=== PATIENT | male | born 1990 | race Two or more races ===

== ENCOUNTER 2021-01-10 12:11 | Emergency (ER) | payer MEDICAID, OTHER ==
[~2021-01-10] VITALS: Ht 172.7 cm; Wt 81.6 kg
[2021-01-10] MEDS ORDERED: IBUPROFEN 800 MG TAB PO ONE (14:00)
[2021-01-10] MEDS ORDERED: LIDOCAINE 1% HCL (LOCAL ANESTH.) INJ 20ML MDV IJ ONE (14:00)
[2021-01-10 14:38] VITALS: BP 130/72
== END 2021-01-10 15:04 | disposition home or self-care (01) ==
LOC: ER 12:11
DX: S61.217A Laceration without foreign body of left little finger without damage to nail, initial encounter (principal); W27.0XXA Contact with workbench tool, initial encounter; Y93.89 Activity, other specified; Y92.89 Other specified places as the place of occurrence of the external cause; Y99.8 Other external cause status
CPT/HCPCS: 12001; 73140; 99283; J2001; 29130